=== PATIENT | male | born 1965 | race Caucasian/White ===

== ENCOUNTER 2017-04-08 10:38 | Emergency (ER) | payer OTHER, BC ==
[~2017-04-08] VITALS: Ht 188 cm; Wt 85.0 kg
[2017-04-08 10:46] VITALS: TEMP 36.6; Ht 188 cm; Wt 85.0 kg
[2017-04-08] MEDS ORDERED: TRAMADOL HCL 50 MG TAB PO STA (11:17)
--- NOTE | 2017-04-08 12:22 | DIAGNOSTIC IMAGING REPORT ---
R KNEE 3 VIEWS CLINICAL HISTORY: Right knee pain status post trauma COMPARISON: None. DISCUSSION: No fractures or dislocations are visualized. There is a small suprapatellar joint effusion. IMPRESSION: Small joint effusion. No fractures identified. Electronically signed by: Hadley Bautista M.D. 04/08/2017 12:20 PM Dictated Date/Time: 04/08/2017 12:20 PM
--- NOTE | 2017-04-08 13:09 | EMERGENCY ROOM VISIT NOTE ---
ED Visit Note First contact with patient: 11:02 CHIEF COMPLAINT: Left knee injury just prior to arrival HISTORY OF PRESENT ILLNESS: Patient is a 52-year-old male brought to the emergency department by ambulance for evaluation of a left knee injury. He was walking into the restroom at a truck stop. He states he hesitated slightly to push the door, his right leg slipped and extend it straight out in front of him , his left leg flexed and twisted medially, and he fell to the ground. He denies feeling any snapping or popping or cracking at the time of the injury. On the ground he was able to get his leg completely straight, and pulled himself over to a chair, he was helped up by bystanders and was able to sit in the chair. He notes a constant, throbbing/burning pain in the left knee that he rates a 3/10. He feels better partially flexed, and states that he also felt comfortable when he was flexed at roughly 90 seated in the chair. He has increased pain when he is extended completely. He denies any prior history of injuries to the knee. REVIEW OF SYSTEMS: Review of systems as per HPI. All other systems reviewed were negative. At least 6 systems reviewed. PMH: Electronic medical records are reviewed and summarized as above/below. See Problem List. SOCIAL HISTORY: Patient lives at home near [place], [place] He is a truck body repairer. Positive tobacco use. PHYSICAL EXAM: Vital Signs: Reviewed Nurse's notes. MENTAL STATUS: Patient is a pleasant, well-appearing 52-year-old white male who is awake and alert and in no acute distress. MUSCULOSKELETAL: Examination of the left knee notes that the patient has it flexed on a blanket, roughly 20 of flexion. Skin is intact without ecchymosis , abrasions or laceration. There is no extra-articular soft tissue swelling, erythema or increased warmth. There is a trace joint effusion palpable. The patellar ligament and quadriceps tendon are palpated and without defect. The patient can extend the knee fully and perform a straight leg raise. There is no peripatellar tenderness or crepitus. He has mild to moderate medial joint line discomfort. No pain laterally. No gross ligamentous instability is appreciated. EMERGENCY DEPARTMENT COURSE: Patient was offered medication for discomfort, and was given tramadol 100 mg orally. X-rays of the left knee were obtained and were negative for acute fracture. Small joint effusion was noted. Patient was reassessed and was fitted with an Sandip wrap. At this point, he was able to fully extend the knee and was comfortable. He was fitted for and trained on crutches. He was also placed in a knee immobilizer, which she tolerated. Possibility of a meniscal or ligamentous injury was discussed with him, and he was advised that he will need to follow-up with orthopedics as covered by his Worker's Compensation insurance for further care and evaluation of his knee injury. Differential diagnoses also entertained included quad tendon or patellar ligament rupture, patellar fracture, tibial plateau fracture, knee sprain, among others. The patient rated his pain a 0/10 at reassessment. Medication reconciliation: I attest that I have personally reviewed the patient' s current medication list. Blood pressure screening : Patient was found to have normal blood pressure on screening and does not require follow-up. R KNEE 3 VIEWS CLINICAL HISTORY: Right knee pain status post trauma COMPARISON: None. DISCUSSION: No fractures or dislocations are visualized. There is a small suprapatellar joint effusion. IMPRESSION: Small joint effusion. No fractures identified. Problem List Medical Problems: (1) IBS (irritable bowel syndrome) Status: Chronic Current/Historical Medications No Active Prescriptions or Reported Meds Allergies Coded Allergies: No Known Allergies (Unverified , 04/08/17) Vital Signs Date Time Temp Pulse Resp B/P (MAP) Pulse Ox O2 Delivery O2 Flow Rate FiO2 04/08/17 12:00 69 16 133/81 96 Room Air 04/08/17 11:28 86 16 155/86 99 Room Air 04/08/17 10:46 36.6 76 20 139/69 98 Room Air Medications Administered Medications (Trade) Dose Ordered Sig/Tawnya Route Start Time Stop Time Status Last Admin Dose Admin Tramadol HCl (Ultram Tab) 100 mg NOW STAT PO 04/08/17 11:17 04/08/17 11:18 DC 04/08/17 11:27 100 MG Departure Information Impression Primary Impression: Left knee injury Additional Impression: Work related injury Prescriptions No Active Prescriptions or Reported Meds Patient Instructions [facility] Additional Instructions DO NOT drive, drink alcohol, operate machinery, or perform dangerous activities today. You were given medications in the ER that can affect your ability to safely function or operate a vehicle. Ibuprofen(Motrin, Advil) may be used for fever or pain. Use 600mg every six hours as needed. Take with food. Avoid using more than 2400mg in a 24 hour period. Do not use 2400mg per day for more than three consecutive days without physician direction. Prolonged inappropriate use can lead to stomach upset or ulcers. This medication can be taken if you need to drive, work, or perform activities which may be dangerous when taking narcotic pain medication. (AND/OR) Acetaminophen(Tylenol) may be used for fever or pain. Use 1000mg every six hours as needed. Avoid using more than 3000mg in a 24 hour period. This medication can be taken if you need to drive, work, or perform activities which may be dangerous when taking narcotic pain medication. Ice compresses for 20 minutes at a time four times daily for 2-3 days. Use the crutches as instructed. Rest and elevate your injury. Continue current medications. Return to the ER immediately for any numbness, tingling, severe pain, extreme swelling in the extremity or as needed. Followup with your workers compensation physician this week for recheck of your injury. Problem Qualifiers
[2017-04-08 13:50] VITALS: BP 146/79; PULSE 79; O2SAT 98
== END 2017-04-08 13:47 | disposition home or self-care (01) ==
LOC: C.EDC 10:42
DX: S89.92XA Unspecified injury of left lower leg, initial encounter (principal); W01.0XXA Fall on same level from slipping, tripping and stumbling without subsequent striking against object, initial encounter; Y92.89 Other specified places as the place of occurrence of the external cause; Y99.0 Civilian activity done for income or pay; K58.9 Irritable bowel syndrome, unspecified; Z72.0 Tobacco use